=== PATIENT | male | born 2000 ===

== ENCOUNTER 2025-02-13 15:40 | Emergency (ER) | payer SELFPAY ==
[~2025-02-13] VITALS: Ht 180.3 cm; Wt 68.0 kg
--- NOTE | 2025-02-13 15:57 | NUR ---
AT THIS TIME THE PATIENT DENIES SUICIDAL OR HOMICIDAL IDEATION. STATES IS EXPERIENCING AUDITORY HALLUCINATIONS. STATES VOICE(S) ARE SAYING "IM GOING TO KILL YOU." DENIES INSTRUCTIONAL HALLUCINATIONS.
[2025-02-13 16:16] LABS: NUCLEATED RED BLOOD CELLS 0.0 % (0.0-0.19); PLATELET COUNT (AUTO) 318.0 K/uL (130-400); RED BLOOD CELL COUNT(AUTO) 4.69 MIL/uL (4.50-6.20); RED CELL DISTRIBUTION WIDTH 15.1 % (11.0-15.5); WHITE BLOOD COUNT (AUTO) 11.6 K/uL (4.8-10.8)
[2025-02-13 16:26] LABS: AMPHET/METH SCREEN,URINE NEGATIVE (NEGATIVE); BARBITURATE SCREEN, URINE NEGATIVE (NEGATIVE); CANNABINOID SCREEN,URINE POSITIVE (NEGATIVE); COCAINE SCREEN,URINE NEGATIVE (NEGATIVE)
[2025-02-13 16:27] LABS: CREATININE 0.7 mg/dL (0.5-1.3); GLOMERULAR FILTR. RATE CALC 130 mL/min (>90); GLUCOSE,RANDOM 130 mg/dL (70-105); SODIUM SERUM 136 mmol/L (136-145); UREA NITROGEN, BLOOD 17 mg/dL (7-18)
[2025-02-13 16:33] LABS: ALCOHOL, BLOOD < 3 mg/dL (0-10); CREATINE KINASE, TOTAL 199 U/L (21-232)
--- NOTE | 2025-02-13 16:46 | NUR ---
[facility] CONTACTED FOR SCREENER.
--- NOTE | 2025-02-13 17:32 | NUR ---
[facility]
[2025-02-13 18:24] VITALS: BP 111/78; PULSE 70; RESP 14; TEMP 98.1; O2SAT 99
--- NOTE | 2025-02-13 18:27 | NUR ---
[facility] SCREENER STATES PATIENT DOES NOT MEET CRITERIA FOR PLACEMENT. PROVIDER [place] MADE AWARE.
--- NOTE | 2025-02-13 18:30 | ERN ---
General Chief Complaint: Suicidal Ideation Stated Complaint: SUICIDAL IDEATION Time Seen by MD: 15:43 Time Seen by Midlevel: 15:43 Source: patient History of Present Illness Initial Comments 24-year-old male presenting to the ER for evaluation of suicide ideation. Allergies: Coded Allergies: No Known Drug Allergies (Unverified Allergy, Unknown, 02/13/25) Past Medical History Past Medical History: Anxiety, Bipolar, Depression Medical History Other: HX OF SUICIDAL IDEATION Past Surgical History: Unknown ROS Dictation CONSTITUTIONAL: Negative except for HPI HEAD/FACE: Negative except for HPI EENT: Negative except for HPI RESPIRATORY: Negative except for HPI GASTROINTESTINAL/ABDOMINAL: Negative except for HPI GENITOURINARY: Negative except for HPI MUSCULOSKELETAL: Negative except for HPI INTEGUMENTARY: Negative except for HPI NEUROLOGICAL/PSYCH: Negative except for HPI HEMATOLOGIC/LYMPHATIC: Negative except for HPI All Systems Negative, Except as noted above. 13 point review of systems assessed and all negative except for above. Physical Exam Physical Exam Dictation Vital Signs reviewed General Appearance: Alert, oriented x 3, no acute distress, well developed, nourished. Head and Face: non-traumatic. Eyes: PERRL, pink conjunctivas, eyelid no trauma, anterior chamber with arcus senilis. Ears: Pinnas intact and no signs of trauma or erythema ear canals clear and no discharge TM no erythema Nose: No discharge, no bleeding. Oropharynx: Mouth normal, tongue pink, pharynx clear,no erythema, tonsils no exudates, no abscesses noted, mucous membrane moist Neck: Supple, non-tender, no thyromegaly, no masses, no JVD, no bruits Breast:Deferred Chest:No tenderness, no crepitus, no paradoxical movement, no retractions Lungs:Clear, well-ventilated, symmetric, no rales, no wheezing, no rhonchi, no stridor, good breath sounds bilaterally Heart: Regular rate, regular rhythm, no murmur, no gallops Vascular: no peripheral edema, Abdomen: Soft, positive bowel sounds, nondistended, no guarding, nontender, no rebound, no masses no hepatomegaly, no splenomegaly, no Coulter's sign, no hernias. Rectal: Deferred Genital: Deferred Neurological: Normal speech, motor function intact, sensory function intact Musculoskeletal: Neck nontender, full range of motion, back nontender, full range of motion, Extremities: nontender, full range of motion Skin: Color pink, dry, no turgor, no rash, no lacerations, no abrasions, no contusions. Lymphatic: Deferred Results Laboratory and Microbiology Lab and Micro Result Laboratory Tests Test 02/13/25 15:55 02/13/25 15:58 Urine Opiates Screen NEGATIVE (NEGATIVE) Urine Barbiturates Screen NEGATIVE (NEGATIVE) Urine Phencyclidine Screen NEGATIVE (NEGATIVE) Urine Amphetamines Screen NEGATIVE (NEGATIVE) Urine Benzodiazepines Screen NEGATIVE (NEGATIVE) Urine Cocaine Screen NEGATIVE (NEGATIVE) Urine Marijuana (THC) Screen POSITIVE (NEGATIVE) H White Blood Count 11.6 K/uL (4.8-10.8) H Red Blood Count 4.69 MIL/uL (4.50-6.20) Hemoglobin 13.1 g/dL (14.0-18.0) L Hematocrit 40.0 % (42-54) L Mean Corpuscular Volume 85.3 fL (79-99) Mean Corpuscular Hemoglobin 27.9 pg (27.0-33.0) Mean Corpuscular Hemoglobin Concent 32.8 g/dL (32.0-36.0) Red Cell Distribution Width 15.1 % (11.0-15.5) Platelet Count 318 K/uL (130-400) Mean Platelet Volume 9.4 fL (7.5-10.5) Nucleated Red Blood Cells 0.0 % (0.0-0.19) Sodium Level 136 mmol/L (136-145) Potassium Level 4.0 mmol/L (3.5-5.1) Chloride Level 99 mmol/L (101-111) L Carbon Dioxide Level 27 mmol/L (21-32) Blood Urea Nitrogen 17 mg/dL (7-18) Creatinine 0.7 mg/dL (0.5-1.3) Glomerular Filtration Rate Calc 130 mL/min (>90) Random Glucose 130 mg/dL (70-105) H Total Calcium 8.9 mg/dL (8.5-10.1) Total Creatine Kinase 199 U/L (21-232) Salicylates Level < 2.8 mg/dL (2.8-20.0) L Acetaminophen Level < 1 mcg/mL (10-29) L Serum Alcohol < 3 mg/dL (0-10) Labs Reviewed?: Yes MDM MDM: Patient presents to the ER for suicidal ideation. Patient medically screened and cleared. [facility] evaluated the patient and patient does not meet criteria for inpatient psychiatric care. Safety plan performed. Patient will be discharged home Differential diagnosis: Suicide ideation, psychiatric problem, dehydration There are no social concerns with this patient. Prescription drug management Prescriptions will include: None Medical management and examination interpretation discussions were had by me with other qualified healthcare professionals as indicated for the patient's care. ED Course Orders Procedure Category Date Status Time Cbc Without LAB 02/13/25 Complete Differential 15:41 Basic Metabolic Panel LAB 02/13/25 Complete 15:41 Salicylate LAB 02/13/25 Complete 15:41 Acetaminophen LAB 02/13/25 Complete 15:41 Alcohol, Blood LAB 02/13/25 Complete 15:41 Drug Screen Urine LAB 02/13/25 Complete 15:41 Creatine Kinase, Total LAB 02/13/25 Complete 15:41 Suicide Precautions CPOE 02/13/25 Transmitted 15:41 One To One Sitter CPOE 02/13/25 Transmitted 15:41 Vital Signs Date Time Temp Pulse Resp B/P (MAP) Pulse Ox O2 Delivery O2 Flow Rate FiO2 02/13/25 15:42 99.0 110 14 128/69 100 Room Air 0 DX & DISP Disposition: Discharge Departure Impression: Primary Impression: Psychiatric problem Condition: Stable Additional Instructions: Follow up with your Primary physcian in 2-3 days. Take medications as prescribed. Please return to the emergency if symptoms return or worsen. Referrals: SELF,REFERRAL (PCP) Time of Disposition: 18:29 I have reviewed the case, and I agree with, Diagnosis and Plan I performed the substantive portion of the visit. I have reviewed and personally made and approve the management plan that is documented in the note by myself or the YUE. I acknowledge for responsibility for the patient's management plan. GILL BRAGG PAC Feb 13, 2025 18:30
--- NOTE | 2025-02-13 18:31 | NUR ---
PERSONAL BELONGINGS RETURNED TO PATIENT BY SECURITY
== END 2025-02-13 18:40 | disposition home or self-care (01) ==
LOC: EDH 15:40
DX: F99 Mental disorder, not otherwise specified (principal); F31.9 Bipolar disorder, unspecified
CPT/HCPCS: 99283; 82550; 80048; 80305; 85027; 36415; G0481